=== PATIENT | female | born 2000 | race American Indian/Alaskan Native ===

== ENCOUNTER 2021-02-23 20:21 | Emergency (ER) | payer MEDICARE, OTHER ==
[2021-02-23] MEDS ORDERED: ALBUTEROL 2.5 MG/3 ML NEBU IH ONE (20:38)
[2021-02-23] MEDS ORDERED: IPRATROPIUM 0.02% NEBU 2.5 ML IH ONE (20:38)
[2021-02-23 20:44] VITALS: BP 156/120
--- NOTE | 2021-02-23 22:16 | XRay Report ---
CHEST 2 VIEWS INDICATION / CLINICAL INFORMATION: chest pain. COMPARISON: None available. FINDINGS: SUPPORT DEVICES: None. HEART / MEDIASTINUM: No significant abnormality. LUNGS / PLEURA: No significant pulmonary or pleural abnormality. No pneumothorax. ADDITIONAL FINDINGS: No significant additional findings. IMPRESSION: 1. No acute findings. Signer Name: Kosta Olivier MD Signed: 02/23/2021 10:11 PM Workstation Name: [id number]
--- NOTE | 2021-02-23 22:59 | Emergency Department Report ---
ED Asthma HPI - General Chief Complaint: Dyspnea/Respdistress Stated Complaint: CHEST PROBLEMS WITH CHF PUI?: Yes Time Seen by Provider: 02/23/21 22:54 Source: patient Mode of arrival: Ambulatory Limitations: No Limitations - History of Present Illness Initial Comments: Chief complaint: "I have not had my medication for 3 months. I think that is a problem." HPI: This is a 20-year-old female with history of CHF, asthma, BMI 50, obstructive sleep apnea, hypertension who presents with shortness of breath wheezing chest pain. Patient was evaluated 2 days ago for similar symptoms. She was ruled out for COVID-19 at outside hospital in the ER. She has had shortness of breath cough wheezing. Chest pain on the entire left side of her body. She has left-sided frontal dull headache. She denies loss of taste or smell. She denies fever chills. Nonproductive cough. She is not vaccinated for COVID-19. She denies leg pain or recent travel. Symptoms have improved after receiving albuterol Atrovent in emergency department. Patiently recently moved from [facility] several months ago. She has been without her medications for 3 months which include Metformin, lisinopril, hydrochlorothiazide, albuterol MDI. 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 MD Complaint: shortness of breath, wheezing, other (Pain on the entire left side of her body.) -: Gradual, days(s) (2 days) Severity: mild Context: ran out of meds Associated Symptoms: none - Related Data Previous Rx's Medication Instructions Recorded Last Taken Type Albuterol Mdi (or & Nicu Only) 2 puff IH QID PRN #8.5 gram 02/23/21 Unknown Rx [ProAir HFA Inhaler] Azithromycin [Zithromax Z-UGO] 0 mg PO DAILY #1 pkg 02/23/21 Unknown Rx Prednisone [predniSONE 10 mg 10 mg PO .TAPER #1 tab.ds.pk 02/23/21 Unknown Rx (6-Day Pack, 21 Tabs)] hydroCHLOROthiazide [HCTZ] 25 mg PO QDAY #90 tablet 02/23/21 Unknown Rx lisinopriL [Lisinopril] 20 mg PO DAILY #90 tablet 02/23/21 Unknown Rx metFORMIN [Glucophage] 500 mg PO BID #180 tablet 02/23/21 Unknown Rx Allergies Allergy/AdvReac Type Severity Reaction Status Date / Time No Known Allergies Allergy Verified 02/23/21 20:44 ED Review of Systems ROS: Stated complaint: CHEST PROBLEMS WITH CHF Other details as noted in HPI Comment: All other systems reviewed and negative Constitutional: denies: chills, fever ENT: denies: throat pain Respiratory: cough, shortness of breath, wheezing Cardiovascular: denies: chest pain Gastrointestinal: denies: abdominal pain, nausea, vomiting ED Past Medical Hx - Past Medical History Previous Medical History?: Yes Hx Hypertension: Yes Hx Congestive Heart Failure: Yes Hx Asthma: Yes - Surgical History Past Surgical History?: No - Family History Family history: hypertension - Social History Smoking Status: Never Smoker Substance Use Type: None - Medications Home Medications: Home Medications Medication Instructions Recorded Confirmed Last Taken Type Albuterol Mdi (or & Nicu Only) 2 puff IH QID PRN #8.5 gram 02/23/21 Unknown Rx [ProAir HFA Inhaler] Azithromycin [Zithromax Z-UGO] 0 mg PO DAILY #1 pkg 02/23/21 Unknown Rx Prednisone [predniSONE 10 mg 10 mg PO .TAPER #1 tab.ds.pk 02/23/21 Unknown Rx (6-Day Pack, 21 Tabs)] hydroCHLOROthiazide [HCTZ] 25 mg PO QDAY #90 tablet 02/23/21 Unknown Rx lisinopriL [Lisinopril] 20 mg PO DAILY #90 tablet 02/23/21 Unknown Rx metFORMIN [Glucophage] 500 mg PO BID #180 tablet 02/23/21 Unknown Rx ED Physical Exam - General Limitations: No Limitations General appearance: alert, in no apparent distress, other (Ambulates without difficulty) - Head Head exam: Present: atraumatic, normocephalic - Eye Eye exam: Present: normal appearance - ENT ENT exam: Present: mucous membranes moist - Neck Neck exam: Present: normal inspection, full ROM - Respiratory Respiratory exam: Present: normal lung sounds bilaterally. Absent: respiratory distress - Cardiovascular Cardiovascular Exam: Present: regular rate, normal rhythm. Absent: systolic murmur, diastolic murmur, rubs, gallop - GI/Abdominal GI/Abdominal exam: Present: soft, normal bowel sounds. Absent: distended, tenderness, guarding, rebound - Extremities Exam Extremities exam: Present: normal inspection - Neurological Exam Neurological exam: Present: alert, oriented X3 - Psychiatric Psychiatric exam: Present: normal affect, normal mood - Skin Skin exam: Present: warm, dry, intact, normal color. Absent: rash ED Course Vital Signs 02/23/21 02/23/21 20:40 20:49 Temperature 98.9 F Pulse Rate 96 H Pulse Rate [ 90 Bilateral] Respiratory 18 Rate Respiratory 24 Rate [Bilateral ] Blood Pressure 156/120 [Left] O2 Sat by Pulse 99 Oximetry ED Medical Decision Making - EKG Data -: EKG Interpreted by Me EKG shows normal: sinus rhythm, axis, intervals, QRS complexes, ST-T waves Rate: normal - EKG Data Interpretation: normal EKG 02/23/21 23:00 EKG obtained 2243 EKG interpreted by me Rate 80 bpm normal sinus rhythm normal rate normal axis normal intervals no ST elevation no ST-T signs of ischemia normal EKG - Radiology Data Radiology results: report reviewed Patient Name: MILTON COLLIER Gender: Female Date of : 2000 Home Phone: Referring Provider: LETY, ED Organization: [facility] Accession Number: [id number] Requested Date: February 23, 2021 20:45 Report Status: Final Requested Procedure: 1 Procedure Description: XR chest routine 2V Modality: XR Findings Reporting MD: Kosta Olivier Dictation Time: February 23, 2021 21:11 Construction Equipment Technician: Not available Railroad Purchasing Agent Date: CHEST 2 VIEWS INDICATION / CLINICAL INFORMATION: chest pain. COMPARISON: None available. FINDINGS: SUPPORT DEVICES: None. HEART / MEDIASTINUM: No significant abnormality. LUNGS / PLEURA: No significant pulmonary or pleural abnormality. No p neumothorax. ADDITIONAL FINDINGS: No significant additional findings. IMPRESSION: 1. No acute findings. Signer Name: Kosta Olivier MD Signed: 02/23/2021 9:11 PM Workstation Name: [id number] - Medical Decision Making Acute asthma exacerbation: No evidence of pneumonia or pulmonary edema. PERC negative for PE. No indication of acute coronary syndrome. Patient has normal EKG without signs or symptoms of angina. I have prescribed patient albuterol MDI prednisone taper and azithromycin. Antibiotics indicated for severe persistent symptoms Also prescribed 90-day supply of Metformin lisinopril hydrochlorothiazide. Patient was referred to outpatient internal medicine physician for primary care. Patient symptoms improved after receiving albuterol 10 mg and Atrovent 1 mg in emergency department. Patient had recent negative COVID-19 test at outside hospital ER. I recommended vaccination against COVID-19. Critical care attestation.: If time is entered above; I have spent that time in minutes in the direct care of this critically ill patient, excluding procedure time. ED Disposition Clinical Impression: Acute asthma exacerbation Disposition: HOME / SELF CARE / HOMELESS Is pt being admited?: No Does the pt Need Aspirin: No Condition: Stable Instructions: Asthma, Adult Prescriptions: metFORMIN [Glucophage] 500 mg PO BID #180 tablet hydroCHLOROthiazide [HCTZ] 25 mg PO QDAY #90 tablet lisinopriL [Lisinopril] 20 mg PO DAILY #90 tablet Prednisone [predniSONE 10 mg (6-Day Pack, 21 Tabs)] 10 mg PO .TAPER #1 tab.ds.pk Albuterol Mdi (or & Nicu Only) [ProAir HFA Inhaler] 2 puff IH QID PRN #8.5 gram PRN Reason: Shortness Of Breath Azithromycin [Zithromax Z-UGO] 0 mg PO DAILY #1 pkg Referrals: UVALDO CORTES MD [Staff Physician] - 3-5 Days
--- NOTE | 2021-02-24 11:30 | Electrocardiograph Report ---
[facility] Test Date: 2021-02-23 Test Time: 22:44:17 Pat Name: MILTON COLLIER Department: Room: Gender: F Adobe Developer: PATRICIA : 2000 Requested By: JOSTIN MAHONEY Order Number: [id number] Reading MD: Mahad Rodriguez Measurements Intervals [place] Rate: 79 P: 44 TN: 135 QRS: 32 QRSD: 87 T: 38 QT: 387 QTc: 443 Interpretive Statements Sinus rhythm No previous ECG available for comparison Electronically Signed On 02-24-2021 11:30:25 EDT by Mahad Rodriguez
== END 2021-02-23 23:05 | disposition home or self-care (01) ==
LOC: ED 20:21
DX: J45.901 Unspecified asthma with (acute) exacerbation (principal); I11.0 Hypertensive heart disease with heart failure
CPT/HCPCS: 71046; 93005; 94644; 99283; 99284